=== PATIENT | male | born 1950 | race Caucasian/White ===

== ENCOUNTER 2018-05-04 12:44 | Emergency (ER) | payer MEDICARE, OTHER, SELFPAY ==
[2018-05-04 12:45] VITALS: BP 156/86; PULSE 64; RESP 18; TEMP 36.3; O2SAT 97; BMI 33.8
--- NOTE | 2018-05-04 13:45 | ED.VISSUMM ---
- ER Visit Summary Date of Service: 05/04/18 Chief Complaint: Left thumb laceration History of Present Illness: The patient is a 67 M laceration left thumb prior to arrival. Using a knife to cut lettuce. Sharpening his knife a week ago. Tetanus less than 2 years ago. Did take Aleve this morning. Physical Examination: General: Alert and oriented ?3, no acute distress HEENT: Normocephalic, atraumatic. Moist mucosa membranes Neck: supple, nontender. Cardiovascular: Regular rate and rhythm, no murmurs Respiratory: Normal breath sounds, symmetric, no distress Abdomen: Soft, nontender, nondistended Extremities: Left hand: Thumb noted three-point centimeter flap laceration extends subcutaneous with mild bleeding. This was at the distal aspect of the phalanx radial with partial nail involvement. No joint involvement. Neuro: no focal neurological deficits. Test Results: [] Emergency Department Course and Treatment: Discussed laceration repair with patient, due to nailbed involvement discussed and offered removing nailbed repair however he would only like repair around this. Performed a normal sterile conditions. A total of 4, 5-0 nylon simple interrupted sutures were placed. Pressure dressing by nursing. Wound care discussed. Follow-up with PCP next 10-14 days reevaluation for suture removal. Treatment Plan: [] Disposition: Discharge Impression: Left thumb laceration status post repair This note was generated with [employer] dictation software. It may contain incorrect words, spelling, and punctuation that were not noted in review of the chart prior to signing ED Disposition - Plan for ED Patient: Disposition: Home or Assisted Living Chief Complaint: Laceration Diagnosis: Laceration of left thumb with damage to nail Instructions: ED Laceration Hand Referrals: Sanjay Carrasco MD [Primary Care Provider] - Merlin Booker MD [NON-STAFF] - 10-14 Days suture removal
[2018-05-04] MEDS: BACITRACIN 15 GM Tube 1 APPLIC TOPICAL (14:07)
== END 2018-05-04 14:13 | disposition home or self-care (01) ==
PROVIDERS: Emergency Provider Emergency Medicine; Family Provider Family Medicine; PCP Family Medicine; Referring Provider Emergency Medicine
DX: S61.112A Laceration without foreign body of left thumb with damage to nail, initial encounter (principal); W26.0XXA Contact with knife, initial encounter; Y93.G1 Activity, food preparation and clean up; Y92.000 Kitchen of unspecified non-institutional (private) residence as the place of occurrence of the external cause; Y99.8 Other external cause status
CPT/HCPCS: 12002; 99283

== ENCOUNTER → 2019-07-27 15:03 | Outpatient (CLI) | payer MEDICARE, OTHER, SELFPAY ==
[2018-05-16 10:59] VITALS: BMI 34.0
== END ==
PROVIDERS: Family Provider Family Medicine; PCP Family Medicine; Referring Provider Otolaryngology Otolaryngology/Facial Plastic Surgery; Visit Provider Otolaryngology Otolaryngology/Facial Plastic Surgery
DX: J02.9 Acute pharyngitis, unspecified (principal)
CPT/HCPCS: 87070

== ENCOUNTER 2020-09-19 17:32 | Outpatient (RCR) | payer MEDICARE, OTHER, SELFPAY ==
[2018-05-16 10:59] VITALS: BMI 34.0
== END 2020-09-19 23:59 ==
LOC: IMMUN 17:32
PROVIDERS: PCP Family Medicine; Visit Provider Family Medicine
DX: Z23 Encounter for immunization (principal)
CPT/HCPCS: 0011A; 0012A